=== PATIENT | female | born 1990 | race Caucasian/White ===

== ENCOUNTER → 2016-11-12 | Outpatient (CLI) | payer OTHER, SELFPAY ==
[~2016-11-12] MED LIST: PRENTAB43 PO
--- NOTE | 2016-11-12 12:08 | REP ---
CERVICAL SPINE, SEVEN VIEWS: HISTORY: Neck pain. COMPARISON: 01/28/2013. There is no acute fracture or subluxation. The intervertebral discs are normal in height. The neural foramina are patent. A left C7 cervical rib is present. IMPRESSION: There is no acute fracture or subluxation. Signed by Demarcus Bautista MD 11/12/2016 12:13 P
== END ==
LOC: M RAD 11:42
PROVIDERS: ATTEND Physician Assistant
DX: M54.2 Cervicalgia (principal); R51 Headache

== ENCOUNTER → 2017-06-23 | Outpatient (CLI) | payer OTHER | LOC: M RAD 15:58 | DX: R05 Cough (principal); R50.9 Fever, unspecified | CPT/HCPCS: 71046 ==

== ENCOUNTER → 2018-01-26 | Outpatient (CLI) | payer OTHER ==
[2018-01-27 10:27] LABS: HEPATITIS B SURFACE ANTIBODY NEGATIVE (POSITIVE); HIV 1&2 SCREEN CENTAUR NEGATIVE (NEGATIVE)
[2018-01-27 10:27] LABS: HEPATITIS C VIRUS ABY INDEX < 0.0 INDEX (<0.8)
== END ==
LOC: M LAB 10:31
DX: Z11.3 Encounter for screening for infections with a predominantly sexual mode of transmission (principal)
CPT/HCPCS: 86706

== ENCOUNTER → 2018-05-11 | Outpatient (REF) | payer OTHER ==
[2018-05-11 14:55] LABS: INFLUENZA A AMPLIFICATION NEGATIVE (NEGATIVE); INFLUENZA B AMPLIFICATION NEGATIVE (NEGATIVE)
== END ==
LOC: M LAB REF 14:14
PROVIDERS: ATTEND Physician Assistant Medical
DX: J11.1 Influenza due to unidentified influenza virus with other respiratory manifestations (principal)

== ENCOUNTER → 2018-08-26 | Outpatient (CLI) | payer OTHER ==
[2018-08-26 10:22] LABS: HCG, SERUM QUALITATIVE NEGATIVE (NEGATIVE)
[2018-08-26 10:29] LABS: FREE T4 1.04 NG/DL (0.76-1.46); PROLACTIN 9.7 NG/ML; THYROID STIMULATING HORMONE 0.889 uIU/ML (0.358-3.740)
== END ==
LOC: M LAB 08:56
PROVIDERS: ATTEND Nurse Practitioner Women's Health
DX: Z32.02 Encounter for pregnancy test, result negative (principal); N91.0 Primary amenorrhea

== ENCOUNTER → 2018-08-26 | Outpatient (CLI) | payer OTHER ==
[2018-08-27 14:11] LABS: ANTI DOUBLE STRAND-DNA AB <1 IU/mL (0-9); ANTINUCLEAR ANTIBODIES DIRECT Positive (Negative); RNP ANTIBODIES 1.6 AI (0.0-0.9); SJOGREN'S ANTI SS-A <0.2 AI (0.0-0.9); SJOGREN'S ANTI SS-B <0.2 AI (0.0-0.9); SMITH ANTIBODIES <0.2 AI (0.0-0.9)
== END ==
LOC: M LAB 08:59
PROVIDERS: ATTEND Internal Medicine Rheumatology
DX: M32.9 Systemic lupus erythematosus, unspecified (principal)

== ENCOUNTER → 2018-11-29 | Outpatient (REF) | payer OTHER, SELFPAY | LOC: M LABDRAW1 08:28 → M SFHCPLAZ 08:28 | PROVIDERS: ATTEND Family Medicine | DX: Z78.9 Other specified health status (principal) ==

== ENCOUNTER 2019-01-18 09:33 | Day surgery (SDC) | payer OTHER, SELFPAY ==
[~2019-01-18] VITALS: Ht 167.6 cm; Wt 57.6 kg
[~2019-01-18 09:33] MED LIST changes: +LIDOCAINE 2% INJ 100 MG/5 ML SDV (FOR ANES.) As Ordered ONE; +PROPOFOL 200 MG/20 ML VIAL As Ordered ONE
[2019-01-18 10:02] LABS: HEMATOCRIT 36.8 % (36.0-47.0); HEMOGLOBIN 11.7 g/dl (12.0-15.5); MEAN CORPUSCULAR HEMOGLOBIN 27.1 pg (27.0-33.0); MEAN CORPUSCULAR HGB CONC 31.8 g/dl (32.0-36.5); MEAN CORPUSCULAR VOLUME 85.4 fl (80.0-96.0); PLATELET COUNT, AUTOMATED 330 10^3/uL (150-450); RED BLOOD COUNT 4.31 10^6/uL (4.00-5.40); WHITE BLOOD COUNT 6.9 10^3/uL (4.0-10.0)
[2019-01-18] MEDS ORDERED: ACET-683 PO (10:03)
[2019-01-18] MEDS ORDERED: ZOLO50TA PO (10:03)
[2019-01-18] MEDS ORDERED: MAXA10TA14 PO (10:03)
[2019-01-18] MEDS ORDERED: PLAQ200T4 PO (10:03)
[2019-01-18] MEDS ORDERED: LIDOCAINE 1% SDV INJ 30 ML VIAL As Ordered ONE (11:24)
[2019-01-18] MEDS ORDERED: fentaNYL 100 MCG/2 ML INJECTION (J3010) As Ordered ONE (11:47)
[2019-01-18] MEDS ORDERED: MIDAZOLAM INJ 2 MG/2 ML VIAL (J2250) As Ordered ONE (11:47)
[2019-01-18] MEDS ORDERED: ONDANSETRON 4MG/2ML VIAL (J2405) As Ordered ONE (11:47)
[2019-01-18] MEDS ORDERED: LIDOCAINE 2% INJ 100 MG/5 ML SDV (FOR ANES.) As Ordered ONE (11:47)
[2019-01-18] MEDS ORDERED: PROPOFOL 200 MG/20 ML VIAL As Ordered ONE ×2 (11:47→11:48)
[2019-01-18] MEDS ORDERED: dexameTHASONE 4 MG/ML 1ML VIAL (J1100) As Ordered ONE (11:47)
[2019-01-18 12:30] VITALS: BP 106/64
[2019-01-18] MEDS ORDERED: oxyCODONE 5MG TAB PO PRN (12:30)
[2019-01-18] MEDS ORDERED: PERCOCET 5MG/325MG TAB PO PRN (12:30)
[2019-01-18] MEDS ORDERED: fentaNYL 100 MCG/2 ML INJECTION (J3010) IV PRN (12:30)
[2019-01-18] MEDS ORDERED: ONDANSETRON 4MG/2ML VIAL (J2405) IV PRN (12:30)
[2019-01-18] MEDS ORDERED: LR 1,000 ML IV SCH (12:30)
[2019-01-18] MEDS ORDERED: METOCLOPRAMIDE INJ 10MG/2ML VIAL (J2765) IV PRN (12:30)
[2019-01-18] MEDS ORDERED: DOXYCYCLINE HYCLATE 100 MG TAB PO ONE (13:00)
[2019-01-18] MEDS ORDERED: KETOROLAC 30 MG/ML VIAL (J1885) IV SCH (13:00)
[2019-01-18] MEDS ORDERED: ACETAMINOPHEN 500 MG TAB As Ordered ONE (13:26)
--- NOTE | 2019-01-19 00:28 | RO ---
DATE OF PROCEDURE: 01/18/2019 PREOPERATIVE DIAGNOSIS: Missed . POSTOPERATIVE DIAGNOSIS: Missed . PROCEDURE PERFORMED: Dilation with sharp and suction curettage. SURGEON: Julieta Naqvi MD DIAMOND GRADER: None. ANESTHESIA: IV sedation with a paracervical block totaling 10 mL of 1% lidocaine. ESTIMATED BLOOD LOSS: 5 mL. INTRAVENOUS FLUIDS: 600 mL. URINE OUTPUT: Was not obtained. SPECIMENS: Intrauterine contents. ANTIBIOTICS GIVEN POSTOPERATIVELY: 200 mg of doxycycline. DESCRIPTION OF OPERATION: After informed consent was obtained and written consent was reviewed, the patient was brought to the operating room where IV sedation was then administered. She was placed in the lithotomy position and was prepped and draped in a normal sterile fashion. A time-out in the operating room was then performed identifying the patient, procedure to be performed, as well as drug allergies. A bivalve speculum was then placed revealing the cervix. A paracervical block was then performed with 1% lidocaine totaling 10 mL. The anterior lip of the cervix was grasped with a single tenaculum. The uterus was then sounded to 10 cm, cervix then sequentially dilated using Hanks dilators. A number 8 suction curette was then advanced through the cervical os to the level of the fundus and was attached to suction. Suction was deployed and the uterus was curetted in a 360-degree fashion with moderate amounts of tissue obtained on two passes. The suction curette was then removed. A sharp curette was then advanced through the cervical os to the level of the fundus and the uterus was curetted in a 360-degree fashion with minimal amounts of tissue obtained. A final pass of the suction curette was then performed, only productive of minimal elise of blood. The instruments were then removed from the patient's vagina. Tenaculum was removed. Tenaculum sites were noted to be hemostatic. Speculum was then removed. The patient was then taken out of the lithotomy position, was taken to recovery in stable condition. Counts were correct.
== END 2019-01-18 13:40 | disposition home or self-care (01) ==
LOC: M SDC 09:33
PROVIDERS: ATTEND Obstetrics & Gynecology
DX: O02.1 Missed abortion (principal); M32.9 Systemic lupus erythematosus, unspecified; M26.601 Right temporomandibular joint disorder, unspecified; F41.9 Anxiety disorder, unspecified; F32.9 Major depressive disorder, single episode, unspecified; Z88.0 Allergy status to penicillin; Z86.69 Personal history of other diseases of the nervous system and sense organs
CPT/HCPCS: 36415; 59820; 85027; 86850; 86900; 86901; 88305; J1100; J2250; J2405; J3010

== ENCOUNTER → 2019-08-05 | Outpatient (REF) | payer OTHER ==
[~2019-08-05] MED LIST changes: +ACET-683 PO; -LIDOCAINE 2% INJ 100 MG/5 ML SDV (FOR ANES.) As Ordered ONE; +MAXA10TA14 PO; +PLAQ200T4 PO; -PROPOFOL 200 MG/20 ML VIAL As Ordered ONE; +ZOLO50TA PO
== END ==
LOC: M SFHCWAGY 17:43
PROVIDERS: ATTEND Nurse Practitioner Women's Health
DX: Z12.4 Encounter for screening for malignant neoplasm of cervix (principal)

== ENCOUNTER 2019-12-28 13:04 | Emergency (ER) | payer MEDICAID, OTHER, SELFPAY ==
[~2019-12-28] VITALS: Ht 167.6 cm; Wt 60.1 kg
[2019-12-28 13:34] LABS: BASO # 0.1 10^3/uL (0.0-0.2); EOS # 0.1 10^3/uL (0.0-0.5); HEMATOCRIT 33.7 % (36.0-47.0); HEMOGLOBIN 10.1 g/dl (12.0-15.5); LYMPH # 1.9 10^3/uL (1.5-5.0); LYMPH % 26.3 % (24.0-44.0); MEAN CORPUSCULAR HEMOGLOBIN 23.3 pg (27.0-33.0); MEAN CORPUSCULAR VOLUME 77.6 fl (80.0-96.0); MONO # 0.8 10^3/uL (0.0-0.8); NEUTROPHILS # 4.2 10^3/uL (1.5-8.5); NEUTROPHILS % 59.6 % (36.0-66.0); PLATELET COUNT, AUTOMATED 351 10^3/uL (150-450); RED BLOOD COUNT 4.34 10^6/uL (4.00-5.40); WHITE BLOOD COUNT 7.1 10^3/uL (4.0-10.0)
[2019-12-28 13:57] LABS: BLOOD UREA NITROGEN 11 MG/DL (7-18); CHLORIDE LEVEL 111 MEQ/L (98-107); CREATININE FOR GFR 0.86 MG/DL (0.55-1.30); GLOMERULAR FILTRATION RATE > 60.0 (>60); GLUCOSE, FASTING 64 MG/DL (70-100); POTASSIUM SERUM 3.8 MEQ/L (3.5-5.1); SODIUM LEVEL 141 MEQ/L (136-145)
[2019-12-28 13:58] LABS: ALBUMIN 3.6 GM/DL (3.2-5.2); ALT/SGPT 12 U/L (12-78); BILIRUBIN,DIRECT 0.1 MG/DL (0.0-0.2); BILIRUBIN,TOTAL 0.4 MG/DL (0.2-1.0); CALCIUM LEVEL 9.2 MG/DL (8.5-10.1); CARBON DIOXIDE LEVEL 23 MEQ/L (21-32); LIPASE 127 U/L (73-393); TOTAL PROTEIN 7.5 GM/DL (6.4-8.2)
--- NOTE | 2019-12-28 14:11 | REPVR ---
PROCEDURE INFORMATION: Exam: US Abdomen, Limited; Right Upper Quadrant Exam date and time: 12/28/2019 1:59 PM Age: 29 years old Clinical indication: Abdominal pain; Epigastric; Additional info: Ruq pain TECHNIQUE: Imaging protocol: US abdomen. Real time ultrasound with image documentation. Limited exam focused on the right upper quadrant. COMPARISON: No relevant prior studies available. FINDINGS: Liver: The liver is homogeneous in echotexture. No demonstrated mass or intrahepatic biliary ductal dilatation. Gallbladder: The gallbladder is without demonstrated stones, sludge or wall thickening, and there is no pericholecystic fluid. Sonographic Romero sign was not commented on. Common bile duct: The common bile duct is normal in size for a patient of this age at 2.7 mm. Pancreas: Visualized portions of the pancreas, not fully including the tail, are without demonstrated abnormality. Right kidney: The right kidney measures 11.7 x 3.9 x 6.0 cm. Normal appearing echotexture. There is no hydronephrosis or demonstrated renal stone, cyst or mass. Inferior vena cava: The IVC is present. IMPRESSION: No cholelithiasis, biliary ductal dilatation or other demonstrated abnormality in the right upper quadrant. Electronically signed by: Samuel Trevino On 12/28/2019 14:11:23 PM
[2019-12-28 15:21] LABS: HCG, SERUM QUALITATIVE NEGATIVE (NEGATIVE)
[2019-12-28] MEDS ORDERED: ISOVUE-370 76% 100ML VIAL As Ordered ONE (15:31)
--- NOTE | 2019-12-28 16:00 | REPVR ---
PROCEDURE INFORMATION: Exam: CT Abdomen And Pelvis With Contrast Exam date and time: 12/28/2019 3:46 PM Age: 29 years old Clinical indication: Abdominal pain; Epigastric; Additional info: Luq/epigastric pain TECHNIQUE: Imaging protocol: Computed tomography of the abdomen and pelvis with intravenous contrast. Radiation optimization: All CT scans at this facility use at least one of these dose optimization techniques: automated exposure control; mA and/or kV adjustment per patient size (includes targeted exams where dose is matched to clinical indication); or iterative reconstruction. Contrast material: ISOVUE 370; Contrast volume: 100 ml; Contrast route: INTRAVENOUS (IV); COMPARISON: 1. US PELVIC NON-OB COMPLETE 02/16/2015 5:35 PM 2. US - Abdomen 12/28/2019 1:56:55 PM FINDINGS: Lungs: The visualized lung bases are essentially clear. Liver: Normal. No mass. Gallbladder and bile ducts: No gallstones are evident, but ultrasound would be more sensitive. No gross biliary ductal dilatation. Pancreas: Normal. No ductal dilation. Spleen: Normal. No splenomegaly. Adrenals: Normal. No mass. Kidneys and ureters: Normal. No hydronephrosis. Stomach and bowel: Question mild wall thickening of the gastric antrum. The unopacified small bowel is not significantly distended to suggest obstruction. The large bowel is grossly unremarkable in appearance. Appendix: The appendix appears normal. Intraperitoneal space: There is no free air. Small free fluid in the pelvis is not clearly outside physiologic limits. Vasculature: Unremarkable. No abdominal aortic aneurysm. Lymph nodes: Unremarkable. No enlarged lymph nodes. Urinary bladder: Unremarkable as visualized. Reproductive: There is a thick-walled left adnexal cyst measuring up to 1.7 cm. Bones/joints: Unremarkable. No acute fracture. Soft tissues: Unremarkable. IMPRESSION: 1. Question wall thickening of the gastric antrum. Correlate as to possible antritis and consider dedicated evaluation. 2. 1.7 cm thick-walled left adnexal cyst with small free fluid in the pelvis. Electronically signed by: Samuel Trevino On 12/28/2019 16:00:01 PM
[2019-12-28] MEDS ORDERED: PROT1TAB2 PO (16:12)
[2019-12-28 16:17] VITALS: BP 119/66
--- NOTE | 2019-12-30 16:44 | ED PDOC ---
Post-Departure Follow-Up lalitha simmons faxed formal report of ct abd/p for fu Dev Loyola MD Dec 30, 2019 16:44
== END 2019-12-28 16:26 | disposition home or self-care (01) ==
LOC: M ED 13:04
DX: K29.70 Gastritis, unspecified, without bleeding (principal); Z79.899 Other long term (current) drug therapy
CPT/HCPCS: 74177; 76705; 80048; 80076; 81001; 83690; 84702; 84703; 85025; 99284; Q9967

== ENCOUNTER → 2019-12-30 | Outpatient (CLI) | payer OTHER ==
[~2019-12-30] MED LIST changes: +PROT1TAB2 PO
[2019-12-30 15:40] LABS: BASO # 0.1 10^3/uL (0.0-0.2); BASO % 0.7 % (0.0-1.0); EOS # 0.1 10^3/uL (0.0-0.5); HEMATOCRIT 32.8 % (36.0-47.0); LYMPH # 1.9 10^3/uL (1.5-5.0); MEAN CORPUSCULAR HEMOGLOBIN 23.6 pg (27.0-33.0); MEAN CORPUSCULAR HGB CONC 30.5 g/dl (32.0-36.5); MEAN CORPUSCULAR VOLUME 77.5 fl (80.0-96.0); MONO # 0.7 10^3/uL (0.0-0.8); MONO % 7.3 % (0.0-5.0); NEUTROPHILS # 7.1 10^3/uL (1.5-8.5); NEUTROPHILS % 71.8 % (36.0-66.0); PLATELET COUNT, AUTOMATED 357 10^3/uL (150-450); RED BLOOD COUNT 4.23 10^6/uL (4.00-5.40); WHITE BLOOD COUNT 9.9 10^3/uL (4.0-10.0)
== END ==
LOC: M LAB 14:43
PROVIDERS: ATTEND Family Medicine
DX: D64.9 Anemia, unspecified (principal)

== ENCOUNTER → 2020-01-03 | Outpatient (CLI) | payer OTHER ==
[2020-01-03 13:39] LABS: HEMATOCRIT 33.9 % (36.0-47.0); HEMOGLOBIN 10.2 g/dl (12.0-15.5); MEAN CORPUSCULAR HEMOGLOBIN 23.6 pg (27.0-33.0); MEAN CORPUSCULAR HGB CONC 30.1 g/dl (32.0-36.5); MEAN CORPUSCULAR VOLUME 78.3 fl (80.0-96.0); PLATELET COUNT, AUTOMATED 346 10^3/uL (150-450); RED BLOOD COUNT 4.33 10^6/uL (4.00-5.40); WHITE BLOOD COUNT 7.5 10^3/uL (4.0-10.0)
[2020-01-03 15:27] LABS: PERCENT SATURATION 4.3 % (13.2-45.0); THYROID STIMULATING HORMONE 1.83 uIU/ML (0.358-3.740)
== END ==
LOC: M PLALAB 10:37
PROVIDERS: ATTEND Family Medicine
DX: D50.8 Other iron deficiency anemias (principal)

== ENCOUNTER → 2020-04-17 | Outpatient (REF) | LOC: M EMP 09:24 | PROVIDERS: ATTEND Family Medicine | DX: Z11.59 Encounter for screening for other viral diseases (principal) ==

== ENCOUNTER → 2020-05-19 | Outpatient (REF) | LOC: M LABSMTC 11:50 | PROVIDERS: ATTEND Pediatrics | DX: Z20.822 Contact with and (suspected) exposure to COVID-19 (principal) ==

== ENCOUNTER → 2020-05-30 | Outpatient (REF) | payer OTHER ==
[2020-05-30 13:38] LABS: HEMATOCRIT 35.2 % (36.0-47.0); HEMOGLOBIN 10.4 g/dl (12.0-15.5); MEAN CORPUSCULAR HEMOGLOBIN 23.7 pg (27.0-33.0); MEAN CORPUSCULAR HGB CONC 29.5 g/dl (32.0-36.5); MEAN CORPUSCULAR VOLUME 80.2 fl (80.0-96.0); PLATELET COUNT, AUTOMATED 362 10^3/uL (150-450); RED BLOOD COUNT 4.39 10^6/uL (4.00-5.40); WHITE BLOOD COUNT 4.6 10^3/uL (4.0-10.0)
[2020-05-30 14:15] LABS: FREE T4 0.87 NG/DL (0.76-1.46); PERCENT SATURATION 5.7 % (13.2-45.0); THYROID STIMULATING HORMONE 1.42 uIU/ML (0.358-3.740)
== END ==
LOC: M SFHCPLAZ 09:02
PROVIDERS: ATTEND Family Medicine
DX: D50.9 Iron deficiency anemia, unspecified (principal); R53.83 Other fatigue
CPT/HCPCS: 36415; 82728; 83550; 84439; 84443; 85027; G0463

== ENCOUNTER → 2020-06-01 | Outpatient (REF) | payer OTHER ==
[2020-06-01 12:00] LABS: ESTRADIOL 168.4 PG/ML; FOLLICLE STIMULATING HORMONE 5.4 mIU/mL; LUTEINIZING HORMONE 14.7 mIU/mL; PROLACTIN 8.8 NG/ML
[2020-06-03 06:39] LABS: TESTOSTERONE FREE (DIRECT) 1.3 pg/mL (0.0-4.2)
== END ==
LOC: M PLALAB 08:20
PROVIDERS: ATTEND Family Medicine
DX: N91.4 Secondary oligomenorrhea (principal)

== ENCOUNTER → 2020-06-11 | Outpatient (CLI) | payer OTHER | LOC: M LABSMTC 14:15 | PROVIDERS: ATTEND Anesthesiology | DX: Z01.818 Encounter for other preprocedural examination (principal); Z20.822 Contact with and (suspected) exposure to COVID-19 ==

== ENCOUNTER → 2020-06-11 | Outpatient (CLI) | payer OTHER ==
--- NOTE | 2020-06-11 13:16 | REP ---
INDICATION: N83.02 LEFT OVARIAN CYST COMPARISON: 02/16/2015 TECHNIQUE: Transabdominal pelvic ultrasound followed by transvaginal examination for better evaluation of the endometrium and adnexa with color Doppler evaluation of the ovaries. FINDINGS: Bladder is partially collapsed and measures 4.0 x 2.1 x 6.4 cm Essentially normal anteverted uterus measures 7.5 x 3.8 x 4.6 cm. The endometrial complex measures 6.3 mm thickness. Small incidental endometrial cyst is identified measuring roughly 5 mm. Bilateral ovaries are normal in appearance and vascularity. The right ovary measures 4.1 x 2.8 x 2.4 cm and includes 1.8 cm presumed dominant follicle. Left ovary measures 3.1 x 2.3 x 2.7 cm. Small amount of free fluid in the pelvis likely physiologic. IMPRESSION: Essentially normal pelvic ultrasound. No acute pelvic pathology appreciated. <Electronically signed by Ron Durbin > 06/11/20 [id number]
== END ==
LOC: M WHC 12:33
PROVIDERS: ATTEND Family Medicine
DX: Z01.818 Encounter for other preprocedural examination (principal); Z20.822 Contact with and (suspected) exposure to COVID-19; N83.02 Follicular cyst of left ovary
CPT/HCPCS: 76830; 76856; U0003

== ENCOUNTER 2020-06-15 13:03 | Day surgery (SDC) | payer OTHER ==
[~2020-06-15] VITALS: Ht 167.6 cm; Wt 64.4 kg
[~2020-06-15 13:03] MED LIST changes: +LIDOCAINE 2% 100MG/5ML SDV (FOR ANES.) As Ordered ONE; +NS 1,000 ML IV ONE; +fentaNYL 100 MCG/2 ML INJECTION (J3010) As Ordered ONE; +propofoL 200 MG/20 ML VIAL As Ordered ONE
[2020-06-15] MEDS ORDERED: propofoL 200 MG/20 ML VIAL As Ordered ONE (14:24)
--- NOTE | 2020-06-15 14:45 | ROOR ---
Patient Name: Zurdo Li Procedure Date: 06/15/2020 1:39 PM Date of : 1990 Age: 30 Room: [facility] Gender: Female Note Status: Finalized Procedure: Upper GI endoscopy Indications: Epigastric abdominal pain, Abnormal CT of the GI tract Providers: Abdulaziz Santos MD Referring MD: Aleena Silva MD Requesting Provider: Medicines: Monitored Anesthesia Care Complications: No immediate complications. Procedure: Pre-Anesthesia Assessment: - Prior to the procedure, a History and Physical was performed, and patient medications and allergies were reviewed. The patient is competent. The risks and benefits of the procedure and the sedation options and risks were discussed with the patient. All questions were answered and informed consent was obtained. Patient identification and proposed procedure were verified by the physician, the nurse and the anesthesiologist in the procedure room. Mental Status Examination: alert and oriented. Airway Examination: normal oropharyngeal airway and neck mobility. Respiratory Examination: clear to auscultation. CV Examination: normal. Prophylactic Antibiotics: The patient does not require prophylactic antibiotics. Prior Anticoagulants: The patient has taken no previous anticoagulant or antiplatelet agents. ASA Grade Assessment: II - A patient with mild systemic disease. After reviewing the risks and benefits, the patient was deemed in satisfactory condition to undergo the procedure. The anesthesia plan was to use monitored anesthesia care (MAC). Immediately prior to administration of medications, the patient was re-assessed for adequacy to receive sedatives. The heart rate, respiratory rate, oxygen saturations, blood pressure, adequacy of pulmonary ventilation, and response to care were monitored throughout the procedure. The physical status of the patient was re-assessed after the procedure. The Endoscope was introduced through the mouth, and advanced to the second part of duodenum. The upper GI endoscopy was accomplished without difficulty. The patient tolerated the procedure well. Findings: The examined esophagus was normal. The Z-line was regular and was found 40 cm from the incisors. Patchy mild inflammation characterized by erythema and granularity was found in the gastric antrum. Biopsies were taken with a cold forceps for Helicobacter pylori testing. Verification of patient identification for the specimen was done by the physician and nurse using the patient's name, date and medical record number. Estimated blood loss was minimal. The duodenal bulb and second portion of the duodenum were normal. Biopsies for histology were taken with a cold forceps for evaluation of celiac disease. Impression: - Normal esophagus. - Z-line regular, 40 cm from the incisors. - Gastritis. Biopsied. - Normal duodenal bulb and second portion of the duodenum. Biopsied. Recommendation: - Patient has a contact number available for emergencies. The signs and symptoms of potential delayed complications were discussed with the patient. Return to normal activities tomorrow. Written discharge instructions were provided to the patient. - High fiber diet. - Continue present medications. - Await pathology results. - Check CBC, serum iron , transferrin and ferritin levels (fasting labs) at appointment to be scheduled. 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 - Telephone GI clinic for pathology results in 2 weeks. - Return to primary care physician. Procedure Code(s): --- Professional --- 46420, Esophagogastroduodenoscopy, flexible, transoral; with biopsy, single or multiple Diagnosis Code(s): --- Professional --- K29.70, Gastritis, unspecified, without bleeding R10.13, Epigastric pain R93.3, Abnormal findings on diagnostic imaging of other parts of digestive tract CPT copyright 2019 [employer]. All rights reserved. The codes documented in this report are preliminary and upon maintenance pipefitter review may be revised to meet current compliance requirements. Abdulaziz Santos MD Abdulaziz Santos MD 06/15/2020 2:44:54 PM Electronically signed by Abdulaziz Santos MD Number of Addenda: 0 Note Initiated On: 06/15/2020 1:39 PM Estimated Blood Loss: Estimated blood loss was minimal.
[2020-06-15 14:47] VITALS: BP 120/61
== END 2020-06-15 15:00 | disposition home or self-care (01) ==
LOC: M OPP 13:03
PROVIDERS: ATTEND Internal Medicine Gastroenterology
DX: K29.70 Gastritis, unspecified, without bleeding (principal); R10.13 Epigastric pain; R93.3 Abnormal findings on diagnostic imaging of other parts of digestive tract; M32.9 Systemic lupus erythematosus, unspecified; Z79.899 Other long term (current) drug therapy
CPT/HCPCS: 43239; 88305; J3010

== ENCOUNTER → 2020-08-10 | Outpatient (REF) | payer OTHER ==
[~2020-08-10] MED LIST changes: -LIDOCAINE 2% 100MG/5ML SDV (FOR ANES.) As Ordered ONE; -NS 1,000 ML IV ONE; -fentaNYL 100 MCG/2 ML INJECTION (J3010) As Ordered ONE; -propofoL 200 MG/20 ML VIAL As Ordered ONE
[2020-08-10 11:31] LABS: HEMATOCRIT 39.7 % (36.0-47.0); HEMOGLOBIN 12.2 g/dl (12.0-15.5); MEAN CORPUSCULAR HEMOGLOBIN 26.1 pg (27.0-33.0); MEAN CORPUSCULAR HGB CONC 30.7 g/dl (32.0-36.5); MEAN CORPUSCULAR VOLUME 84.8 fl (80.0-96.0); PLATELET COUNT, AUTOMATED 299 10^3/uL (150-450); RED BLOOD COUNT 4.68 10^6/uL (4.00-5.40); WHITE BLOOD COUNT 4.8 10^3/uL (4.0-10.0)
[2020-08-10 11:45] LABS: PERCENT SATURATION 7.8 % (13.2-45.0)
[2020-08-10 11:49] LABS: FREE T4 0.88 NG/DL (0.76-1.46); THYROID STIMULATING HORMONE 1.99 uIU/ML (0.358-3.740)
[2020-08-10 11:51] LABS: PROGESTERONE 5.61 NG/ML; PROLACTIN 10.6 NG/ML
[2020-08-10 11:52] LABS: FOLLICLE STIMULATING HORMONE 4.9 mIU/mL; LUTEINIZING HORMONE 23.4 mIU/mL
== END ==
LOC: M PLALAB 08:49
PROVIDERS: ATTEND Specialist
DX: D50.9 Iron deficiency anemia, unspecified (principal); N92.6 Irregular menstruation, unspecified

== ENCOUNTER → 2020-11-20 | Outpatient (CLI) | payer OTHER | LOC: M LAB 17:07 | PROVIDERS: ATTEND Specialist | DX: N92.6 Irregular menstruation, unspecified (principal) ==

== ENCOUNTER → 2020-11-22 | Outpatient (CLI) | payer OTHER ==
[~2020-11-22] MED LIST changes: +CLOM50TA9 PO
== END ==
LOC: M LAB 14:08
PROVIDERS: ATTEND Advanced Practice Midwife
DX: R58 Hemorrhage, not elsewhere classified (principal)

== ENCOUNTER → 2020-11-28 | Outpatient (CLI) | payer OTHER | LOC: M LABSMTC 10:49 | PROVIDERS: ATTEND Anesthesiology | DX: Z01.812 Encounter for preprocedural laboratory examination (principal); Z11.52 Encounter for screening for COVID-19 ==

== ENCOUNTER 2020-11-30 09:33 | Day surgery (SDC) | payer OTHER ==
[~2020-11-30] VITALS: Ht 167.6 cm; Wt 61.2 kg
[~2020-11-30 09:33] MED LIST changes: +NS 1,000 ML IV ONE
--- NOTE | 2020-11-30 10:50 | ROOR ---
Patient Name: Zurdo Li Procedure Date: 11/30/2020 10:20 AM Date of : 1990 Age: 30 Room: [facility] Gender: Female Note Status: Finalized Procedure: Colonoscopy Indications: Iron deficiency anemia, Change in bowel habits, Constipation Providers: Abdulaziz Santos MD Referring MD: Aleena Silva MD Requesting Provider: Medicines: Monitored Anesthesia Care Complications: No immediate complications. Procedure: Pre-Anesthesia Assessment: - Prior to the procedure, a History and Physical was performed, and patient medications and allergies were reviewed. The patient is competent. The risks and benefits of the procedure and the sedation options and risks were discussed with the patient. All questions were answered and informed consent was obtained. Patient identification and proposed procedure were verified by the physician, the nurse and the anesthesiologist in the procedure room. Mental Status Examination: alert and oriented. Airway Examination: normal oropharyngeal airway and neck mobility. Respiratory Examination: clear to auscultation. CV Examination: normal. Prophylactic Antibiotics: The patient does not require prophylactic antibiotics. Prior Anticoagulants: The patient has taken no previous anticoagulant or antiplatelet agents. ASA Grade Assessment: I - A normal, healthy patient. After reviewing the risks and benefits, the patient was deemed in satisfactory condition to undergo the procedure. The anesthesia plan was to use monitored anesthesia care (MAC). Immediately prior to administration of medications, the patient was re-assessed for adequacy to receive sedatives. The heart rate, respiratory rate, oxygen saturations, blood pressure, adequacy of pulmonary ventilation, and response to care were monitored throughout the procedure. The physical status of the patient was re-assessed after the procedure. The Colonoscope was introduced through the anus and advanced to the terminal ileum, with identification of the appendiceal orifice and IC valve. The colonoscopy was performed without difficulty. The patient tolerated the procedure well. The quality of the bowel preparation was good. The terminal ileum, ileocecal valve, appendiceal orifice, and rectum were photographed. Scope insertion time was 2 minutes. Scope withdrawal time was 9 minutes. The total duration of the procedure was 11 minutes. Findings: The perianal and digital rectal examinations were normal. The terminal ileum appeared normal. Normal mucosa was found in the entire colon. Non-bleeding external and internal hemorrhoids were found during retroflexion. The hemorrhoids were small. Impression: - The examined portion of the ileum was normal. - Normal mucosa in the entire examined colon. - Non-bleeding external and internal hemorrhoids. - No specimens collected. Recommendation: - Patient has a contact number available for emergencies. The signs and symptoms of potential delayed complications were discussed with the patient. Return to normal activities tomorrow. Written discharge instructions were provided to the patient. - High fiber diet. - Continue present medications. - Check CBC, serum iron , transferrin and ferritin levels (fasting labs) in 2 months. - Use fiber, for example Citrucel, Fibercon, Konsyl or Metamucil. - Telephone GI clinic if symptomatic in 2 weeks. - Return to GI clinic in [facility] (address [address], [address], [place], [facility]) in 4 -- 6 weeks. Please call GI clinic @ [phone] for apppointment date and time. - Return to primary care physician. Procedure Code(s): --- Professional --- 67652, Colonoscopy, flexible; diagnostic, including collection of specimen(s) by brushing or washing, when performed (separate procedure) Diagnosis Code(s): --- Professional --- K64.8, Other hemorrhoids D50.9, Iron deficiency anemia, unspecified R19.4, Change in bowel habit K59.00, Constipation, unspecified CPT copyright 2019 [employer]. All rights reserved. The codes documented in this report are preliminary and upon ordnance engineering technician review may be revised to meet current compliance requirements. Abdulaziz Santos MD Abdulaziz Santos MD 11/30/2020 10:50:54 AM Electronically signed by Abdulaziz Santos MD Number of Addenda: 0 Note Initiated On: 11/30/2020 10:20 AM Estimated Blood Loss: Estimated blood loss was minimal.
[2020-11-30] MEDS ORDERED: LIDOCAINE 2% 100MG/5ML SDV (FOR ANES.) As Ordered ONE (10:51)
[2020-11-30] MEDS ORDERED: propofoL 200 MG/20 ML VIAL As Ordered ONE (10:51)
[2020-11-30 11:08] VITALS: BP 105/61
== END 2020-11-30 11:12 | disposition home or self-care (01) ==
LOC: M OPP 09:33
PROVIDERS: ATTEND Internal Medicine Gastroenterology
DX: D50.9 Iron deficiency anemia, unspecified (principal); K64.8 Other hemorrhoids; K59.00 Constipation, unspecified; M32.9 Systemic lupus erythematosus, unspecified

== ENCOUNTER → 2020-12-03 | Outpatient (CLI) | payer OTHER ==
[~2020-12-03] MED LIST changes: -NS 1,000 ML IV ONE
[2020-12-03 11:13] LABS: HEMOGLOBIN 9.6 g/dl (12.0-15.5); PLATELET COUNT, AUTOMATED 413 10^3/uL (150-450); WHITE BLOOD COUNT 5.7 10^3/uL (4.0-10.0)
== END ==
LOC: M PLALAB 08:31
PROVIDERS: ATTEND Family Medicine
DX: D50.9 Iron deficiency anemia, unspecified (principal)
CPT/HCPCS: 36415; 82728; 85027; G0463

== ENCOUNTER → 2021-01-15 | Outpatient (REF) | payer OTHER | LOC: M LAB REF 19:20 | PROVIDERS: ATTEND Internal Medicine Medical Oncology | DX: D50.9 Iron deficiency anemia, unspecified (principal) ==